=== PATIENT | female | born 2000 | race American Indian/Alaskan Native ===

== ENCOUNTER 2022-01-12 12:35 | Outpatient (CLI) | payer BC, OTHER ==
[2022-01-12 13:35] VITALS: BP 122/80
--- NOTE | 2022-01-12 15:14 | Vascular Lab Report ---
DUPLEX DOPPLER LOWER EXTREMITY VEINS, BILATERAL INDICATION / CLINICAL INFORMATION: Asymmetric lower extremity edema, greater on the right. 37 weeks p regnant. TECHNIQUE: Duplex doppler imaging was performed through the veins of both lower extremities using bettie ous compression and other maneuvers. COMPARISON: None available. FINDINGS: RIGHT COMMON FEMORAL VEIN: Negative. RIGHT FEMORAL VEIN: Negative. RIGHT POPLITEAL VEIN: Negative. RIGHT CALF VEINS: Negative. LEFT COMMON FEMORAL VEIN: Negative. LEFT FEMORAL VEIN: Negative. LEFT POPLITEAL VEIN: Negative. LEFT CALF VEINS: Negative. ADDITIONAL FINDINGS: No abnormal mass or fluid collection is seen. IMPRESSION: No sonographic evidence for DVT in either lower extremity. Signer Name: Fady Nuñez MD Signed: 01/12/2022 3:10 PM Workstation Name: [employer]
== END 2022-01-12 15:50 | disposition home or self-care (01) ==
LOC: TRG 12:35 → APU 12:37 → TRG 15:48
PROVIDERS: ATTEND Student in an Organized Health Care Education/Training Program
DX: O12.03 Gestational edema, third trimester (principal); Z3A.37 37 weeks gestation of pregnancy
CPT/HCPCS: 59025; 93970; 96360

== ENCOUNTER 2022-01-30 11:40 | Inpatient (IN) | payer BC, OTHER ==
[2022-01-30] MEDS ORDERED: TERBUTALINE 1 MG/1 ML INJ SUB-Q PRN (12:17)
[2022-01-30] MEDS ORDERED: miSOPROStol 200 MCG TAB PR PRN (12:17)
[2022-01-30] MEDS ORDERED: OXYTOCIN 10 UNIT/1 ML INJ IM PRN (12:17)
[2022-01-30] MEDS ORDERED: CARBOPROST TROMETHAMINE 250 MCG/1 ML INJ IM PRN (12:17)
[2022-01-30] MEDS ORDERED: ACETAMINOPHEN 325 MG TAB PO PRN (12:17)
[2022-01-30] MEDS ORDERED: fentaNYL 100 MCG/2 ML INJ IV PRN (12:17)
[2022-01-30] MEDS ORDERED: METHYLERGONOVINE MALEATE 0.2 MG/ML VIAL IM PRN (12:17)
[2022-01-30] MEDS ORDERED: ONDANSETRON 4 MG/2 ML INJ IV PRN ×2 (12:17→14:34)
[2022-01-30] MEDS ORDERED: MINERAL OIL 30 ML ORAL LIQD PO PRN (12:17)
[2022-01-30] MEDS ORDERED: LOPERAMIDE 2 MG CAP PO PRN (12:17)
[2022-01-30] MEDS ORDERED: LIDOCAINE (2%) 20 MG/1 ML VIAL 20 ML MDV INFILTRATI ONE (12:17)
[2022-01-30] MEDS ORDERED: NalbUPHINE 10 MG/1 ML INJ IV PRN (12:17)
[2022-01-30] MEDS ORDERED: ePHEDrine SULFATE 50 MG/1 ML INJ IV PRN ×2 (12:17→13:19)
--- NOTE | 2022-01-30 12:27 | History and Physical Report ---
History of Present Illness Date of examination: 01/30/22 Chief complaint: Labor contractions History of present illness: EDC Confirmation: 01/29/2022 Gestational Age: 35 weeks Past History : 1 Term Births: 0 Premature Births: 0 Living Children: 0 Para: 0 Mult. Births: 0 Prev : 0 Aborta: 0 Elect. Ab: 0 Spont. Ab: 0 Ectopics: 0 Past Medical History: Reviewed and updated today: Negative Past Medical History Past Surgical History: Reviewed and updated today: Negative Past Surgical History Family History Summary: Other Family Member - Has No Family History of Ovarvian Cancer - Entered On: 12/25/2021 Other Family Member - Has No Family History of Colon Cancer - Entered On: 12/25/2021 Other Family Member - Has Family History Breast Cancer - Entered On: 12/25/2021 Social History: Marital Status: Single Children: 0 Occupation: Risk Factors: Smoked Tobacco Use: Never smoker Smokeless Tobacco Use: Never Counseled to Quit/Cut Down: yes Passive Smoke Exposure: no HIV High Risk Behavior: low risk Caffeine Use: 0 drinks per day Exercise: yes Times/wk: 4 Type of Exercise: walk Alcohol Use: no Drug Use: yes Drug of Choice: marijuana Past Medical History 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 Past Surgical History Abnormal PAP: negative Uterine Anomaly: negative Social Hx: Marital Status: Single Children: 0 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 History Hx of STD: none HIV Risk Eval: low risk Hepatitis B Risk Eval: low risk Active Medications (reviewed today): PNV Current Allergies: ASPIRIN (ASPIRIN) (Moderate) Past History Past Medical History: other (see HPI) Past Surgical History: other (see HPI) 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) Family/Genetic History: other (see HPI) Social history: no significant social history - Obstetrical History Expected Date of Delivery: 01/29/22 Actual Gestation: 40 Week(s) 1 Day(s) : 1 Para: 0 Hx # Term Pregnancies: 0 Number of Pregnancies: 0 Spontaneous Abortions: 0 Induced : 0 Number of Living Children: 0 Medications and Allergies Allergies Allergy/AdvReac Type Severity Reaction Status Date / Time aspirin Allergy Mild Hives Verified 01/30/22 12:10 Home Medications Medication Instructions Recorded Confirmed Last Taken Type Vit No.179/Iron/Folic 1 each PO DAILY 01/30/22 01/30/22 01/29/22 History [ Tablet] Active Meds: Active Medications Acetaminophen (Acetaminophen 325 Mg Tab) 650 mg PO Q4H PRN PRN Reason: Pain, Mild (1-3) Carboprost Tromethamine (Carboprost Tromethamine 250 Mcg/1 Ml Inj) 250 mcg IM ONCE PRN PRN Reason: Uterine Bleeding Ephedrine Sulfate (Ephedrine Sulfate 50 Mg/1 Ml Inj) 10 mg IV Q2M PRN PRN Reason: Hypotension Fentanyl (Fentanyl 100 Mcg/2 Ml Inj) 100 mcg IV Q2H PRN PRN Reason: Pain,Severe (7-10) LABOR PAIN Oxytocin/Sodium Chloride (Pitocin/Ns 30 Unit/500ml) 30 units in 500 mls @ 2 mls/hr IV TITR CARMEN; Protocol Lactated Ringer's (Lactated Ringers) 1,000 mls @ 125 mls/hr IV DIRECT CARMEN Oxytocin/Sodium Chloride (Pitocin/Ns 30 Unit/500ml) 30 units in 500 mls @ 40 mls/hr IV TITR CARMEN; Protocol Lidocaine (Lidocaine (2%) 20 Mg/1 Ml Vial 20 Ml Mdv) 20 ml INFILTRATI ONCE ONE Stop: 01/30/22 12:18 Loperamide HCl (Loperamide 2 Mg Cap) 2 mg PO ONCE PRN PRN Reason: give with Hemabate Methylergonovine Maleate (Methylergonovine Maleate 0.2 Mg/Ml Vial) 0.2 mg IM ONCE PRN PRN Reason: Uterine Bleeding Mineral Oil (Mineral Oil 30 Ml Oral Liqd) 30 ml PO QHS PRN PRN Reason: Constipation Misoprostol (Misoprostol 200 Mcg Tab) 800 mcg MO ONCE PRN PRN Reason: Uterine Bleeding Nalbuphine HCl (Nalbuphine 10 Mg/1 Ml Inj) 10 mg IV Q2H PRN PRN Reason: Pain, Moderate (4-6) Ondansetron HCl (Ondansetron 4 Mg/2 Ml Inj) 4 mg IV Q8H PRN PRN Reason: Nausea And Vomiting Oxytocin (Oxytocin 10 Unit/1 Ml Inj) 10 unit IM ONCE PRN PRN Reason: Uterine Bleeding Terbutaline Sulfate (Terbutaline 1 Mg/1 Ml Inj) 0.25 mg SUB-Q ONCE PRN PRN Reason: Hyperstimulation/Hypertonicity Review of Systems All systems: negative - Vital Signs Vital signs: Vital Signs Pulse Pulse Ox 111 H 100 01/30/22 12:00 01/30/22 12:00 Temp Pulse Resp BP Pulse Ox 118 H 24 144/72 99 01/30/22 12:10 01/30/22 12:03 01/30/22 12:03 01/30/22 12:10 - Physical Exam Breasts: Positive: normal Cardiovascular: Regular rate Lungs: Positive: Normal air movement Abdomen: Positive: normal appearance, soft Genitourinary (Female): Positive: normal external genitalia, normal perenium - Obstetrical FHR: category 1 Uterine Contraction Monitor Mode: External Cervical Dilatation: 7 (Per triage nurse, anterior cx) Cervical Effacement Percentage: 100 Uterine Contraction Pattern: Regular Uterine Tone Measurement Phase: Contraction Results All other labs normal. OB Labs Blood Type: O (09/12/2021) Rh Type: positive (09/12/2021) Rh Antibody Screen: negative (09/12/2021) Hgb: 10.6 (09/12/2021) Hct: 32.7 (09/12/2021) Platelets: 306 (09/12/2021) Rubella: immune (09/12/2021) RPR: nonreactive (09/12/2021) Hep B Surface Antigen: negative (09/12/2021) HIV: negative (09/12/2021) Urine Culture: Negative (09/12/2021) First/Ultra Screen Interpretation: Panoroma/Susy Negative (09/12/2021) 1 Hour GTT: 142 (10/31/2021) 3 Hour GTT - fastin (11/06/2021) - 1 hour: 142 (11/06/2021) - 2 hour: 140 (11/06/2021) - 3 Hour: 138 (11/06/2021) Optional Labs Sickle Cell: negative (09/12/2021) Infant's Physician: mine Assessment and Plan 21y/o @ 40+1 weeks, admitted in active labor. Admission orders in EMR. uncomplicated, transfer to our office @ 35 weeks. GBS negative. records faxed to l&d. Anticipate - Patient Problems (1) 40 weeks gestation of Current Visit: Yes Status: Acute
[2022-01-30] MEDS ORDERED: LACTATED RINGERS 1,000 ML IV SCH (12:30)
[2022-01-30] MEDS ORDERED: fentaNYL-BUPIV 2 MCG/ML-0.125% 200 MCG/100 ML BAG EPIDURAL ONE (12:54)
[2022-01-30] MEDS ORDERED: SODIUM CHLORIDE P/F VIAL 10 ML 10 ML ONE (12:58)
[2022-01-30] MEDS ORDERED: BUPIVACAINE/PF (0.25%) 2.5 MG/ML 10 ML VIAL INFILTRATI ONE (12:59)
[2022-01-30] MEDS ORDERED: OXYTOCIN DRIP 30 UNITS/500 ML BAG IV SCH ×2 (13:00)
[2022-01-30 13:06] LABS: Hemoglobin 11.2 gm/dl (10.1-14.3); Mean Corpuscular HGB Conc 33 % (30-34); Mean Corpuscular Volume 88 fl (79-97); Platelet Count 378 K/mm3 (140-440); Red Blood Count 3.85 M/mm3 (3.65-5.03); Red Cell Distribution Width 17.1 % (13.2-15.2)
[2022-01-30] MEDS ORDERED: fentaNYL-BUPIV 2 MCG/ML-0.125% 200 MCG/100 ML BAG EPIDURAL SCH (13:19)
[2022-01-30] MEDS ORDERED: NALOXONE 0.4 MG/1 ML INJ IV PRN (13:19)
--- NOTE | 2022-01-30 13:23 | Anesthesia Consultation ---
Anesthesia Consult and Med Hx Date of service: 01/30/22 - Airway Anesthetic Teeth Evaluation: Good ROM Head & Neck: Adequate Mental/Hyoid Distance: Adequate Mallampati Class: Class II Intubation Access Assessment: Probably Good - Pulmonary Exam CTA: Yes - Cardiac Exam Cardiac Exam: RRR - Pre-Operative Health Status ASA Pre-Surgery Classification: ASA2 Proposed Anesthetic Plan: Epidural - Pulmonary Hx Smoking: No Hx Asthma: No Hx Respiratory Symptoms: No SOB: No COPD: No Home Oxygen Therapy: No Hx Pneumonia: No Hx Sleep Apnea: No - Cardiovascular System Hx Hypertension: No Hx Coronary Artery Disease: No Hx Heart Attack/AMI: No Hx Angina: No Hx Percutaneous Transluminal Coronary Angioplasty (PTCA): No Hx Cardia Arrhythmia: No Hx Pacemaker: No Hx Internal Defibrillator: No Hx Valvular Heart Disease: No Hx Heart Murmur: No Hx Peripheral Vascular Disease: No - Central Nervous System Hx Neuromuscular Disorder: No Hx Seizures: No CVA: No Hx Back Pain: No Hx Psychiatric Problems: No - Gastrointestinal Hx Ulcer: No Hx Gastroesophageal Reflux Disease: No - Endocrine Hx Renal Disease: No Hx End Stage Renal Disease: No Hx Cirrhosis: No Hx Liver Disease: No Hx Insulin Dependent Diabetes: No Hx Non-Insulin Dependent Diabetes: No Hx Thyroid Disease: No Hx Hypothyroidism: No Hx Hyperthyroidism: No - Hematic Hx Anemia: Yes Hx Sickle Cell Disease: No - Other Systems Hx Alcohol Use: No Hx Substance Use: No Hx Cancer: No Hx Obesity: No
--- NOTE | 2022-01-30 13:23 | Anesthesia Day of Surgery ---
Anesthesia Day of Surgery - Day of Surgery Patient Examined: Yes Patient H&P Reviewed: Yes Patient is NPO: Yes Beta Blockers: No Cardiac Clearance: No Pulmonary Clearance: No Schuyler's Test: N/A
--- NOTE | 2022-01-30 13:25 | Event Note ---
Date: 01/30/22 reevaluated pt s/p epidural, pt reports increased rectal pressure with some urge to bear down. SVE now 9.5/100/+2, IBOW noted. Anticipate , dr. Flynn updated.
[2022-01-30] MEDS ORDERED: MAGNESIUM HYDROXIDE (MOM) ORAL LIQD UDC PO PRN (14:34)
[2022-01-30] MEDS ORDERED: LANOLIN/ZINC/DIMETHICONE (LANSINOH) 7 GM TP PRN ×2 (14:34)
[2022-01-30] MEDS ORDERED: BENZOCAINE/MENTHOL 20/0.5% TOP SPRAY 56 GM TP PRN (14:34)
[2022-01-30] MEDS ORDERED: PROMETHAZINE 25 MG TAB PO PRN (14:34)
[2022-01-30] MEDS ORDERED: KETOROLAC 30 MG/1 ML INJ IV PRN (14:34)
[2022-01-30] MEDS ORDERED: diphenhydrAMINE 25 MG CAP PO PRN (14:34)
[2022-01-30] MEDS ORDERED: WITCH HAZEL/ GLYCERIN PAD TP PRN (14:34)
--- NOTE | 2022-01-30 14:34 | Procedure Note ---
OB Delivery Note - Delivery Date of Delivery: 01/30/22 Plating Foreman: KULWANT BARKLEY Estimated blood loss: 200cc - Vaginal Delivery presentation: vertex Delivery position: OA Intrapartum events: none Delivery induction: none Delivery monitor: external FHT, external uterine Route of delivery: Delivery placenta: spontaneous Delivery cord: 3 umbilical vessels Episiotomy: none Delivery laceration: 1st degree Delivery repair: vicryl Anesthesia: epidural Delivery comments: baby girl birthed over intact perineum, Direct OA, restituted to ARIC. pt stopped pushing and lost control after head delivered. Nursing staff assumed care of patient's legs, back to Jacqueline, HOB flat. Pt given instruction to push, anterior shoulder delivered without difficulty. Cord clamped and cut, cord blood collected. handed off to warmer for assessment. Placenta del intact and complete. 1st degree perineal lac repaired in the usual fashion. EBL 200ml. Apgars 8/9, wt 8#8oz. All counts correct, mother and infant LDR stable. - A at 1 minute: 8 at 5 minutes: 9 Gender: Female (8#8oz)
--- NOTE | 2022-01-30 14:36 | Progress Note ---
Labor Epidural - Labor Epidural Start Time: 12:58 Stop Time: 13:08 Performed by:: MARIELA ARRIAGA Procedure: Epidural Requested for Labor Pain. H&P and PT Chart reviewed and consent obtained. Time out performed and the procedure was explained, all questions answered. Patient was placed in a sitting position with monitors applied. The PTs back was prepped and draped in usual sterile fashion. The Skin was localized with 3 mL of 1% lidocaine at L3-L4. A 17-gauge Touhy epidural needle was advanced to ADIS with saline at 7 cm and no blood/CSF was noted via epidural needle. Epidural catheter was advanced to 12 cm. There was negative aspiration for blood and CSF in the catheter and negative response to a test dose of 3 ml 1.5% lidocaine w/ Epi and a sterile dressing was applied Patient tolerated the procedure well and there were no immediate complications noted.
[2022-01-30] MEDS: IBUPROFEN 800 MG TAB PO SCH ×2 (17:25→21:23)
[2022-01-30 17:29] LABS: Alanine Aminotransferase 11 units/L (7-56); Uric Acid 5.6 mg/dL (3.5-7.6)
[2022-01-30 18:40] LABS: Bilirubin,Urine Negative (Negative); Blood,Urine Negative (Negative); Color,Urine Yellow (Yellow); Protein,Urine <15 mg/dL mg/dL (Negative)
[2022-01-30] MEDS: DOCUSATE SODIUM 100 MG CAP PO SCH (22:30)
[2022-01-31 02:18] LABS: Hemoglobin 10.2 gm/dl (10.1-14.3)
[2022-01-31] MEDS: IBUPROFEN 800 MG TAB PO SCH ×3 (03:24→15:58)
[2022-01-31] MEDS ORDERED: TETANUS,DIPH,PERTUSS(ACELL) VACCINE 0.5 ML SYRINGE IM ONE (06:00)
--- NOTE | 2022-01-31 09:24 | Discharge Summary ---
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 Her BP's are now WNL at time of discharge. She denies CESAR, blurred vision, spots before her eyes, chest pain, shortness of breath, and upper abdominal pain. Hospital course: S: Pt doing well. Ambulating, voiding, and passing flatus. O: VSS. Adequate I&O's. H/H 10.2/30.0 Fundus firm, minimal bleeding noted. A: 21 y.o. s/p at term. In good condition . P: Discharge home with instructions. Pt to schedule visit in the office in 4-6 weeks. Condition at discharge: Good Disposition: 01 HOME / SELF CARE / HOMELESS Plan - Provider Discharge Summary Activity: routine, no sex for 6 weeks, no heavy lifting 4 weeks, no strenuous exercise Diet: routine Instructions: routine Additional instructions: [] Smoking cessation referral if applicable(refer to patient education folder for contact #) [] Refer to [facility]'s [facility] Booklet Call your doctor immediately for: * Fever > 100.5 * Heavy vaginal bleeding ( >1 pad per hour) * Severe persistent headache * Shortness of breath * Reddened, hot, painful area to leg or breast * Drainage or odor from incision. * Keep incision clean and dry at all times and follow doctor's instructions regarding bathing/showering - Follow up plan Follow up: FLAKITA CUELLAR MD [Primary Care Provider] - 7 Days (- Congratulations on the of your baby girl. - Thank you for allowing us to take care of you. - Please schedule your visit in the office in 4-6 weeks. - If you have any questions or concerns after discharge, please do not hesitate to call the office at [phone]. )
[2022-01-31] MEDS ORDERED: PRENATAL VIT27-FE FUMARATE-FOLIC ACID VIT TAB PO SCH (10:00)
[2022-01-31] MEDS: DOCUSATE SODIUM 100 MG CAP PO SCH (10:30)
--- NOTE | 2022-01-31 10:41 | Post Anesthesia Evaluation ---
- Post Anesthesia Evaluation Patient Participated: Yes Airway Patent: Yes Stable Respiratory Function: Yes Nausea/Vomiting: No Temp > 96.8F: Yes Pain Manageable: Yes Adequeate Hydration: Yes Anesthesia Complications: No Block Receding Appropriately: Yes Patient on Ventilator: No
[2022-01-31 17:10] VITALS: BP 116/65
== END 2022-01-31 16:48 | disposition home or self-care (01) | DRG 775 ==
LOC: TRG 11:40 → APU 11:41 → LD 12:17 → TRG 12:17 → LD 12:27 → OB 16:27
PROVIDERS: ADMIT Obstetrics & Gynecology; ATTEND Obstetrics & Gynecology
PROC: 10E0XZZ Delivery of Products of Conception, External Approach (ICD-10-PCS; principal; 2022-01-30)
PROC: 0HQ9XZZ Repair Perineum Skin, External Approach (ICD-10-PCS; 2022-01-30)
PROC: 3E0R3BZ Introduction of Anesthetic Agent into Spinal Canal, Percutaneous Approach (ICD-10-PCS; 2022-01-30)
PROC: 00HU33Z Insertion of Infusion Device into Spinal Canal, Percutaneous Approach (ICD-10-PCS; 2022-01-30)
PROC: 3E0234Z Introduction of Serum, Toxoid and Vaccine into Muscle, Percutaneous Approach (ICD-10-PCS; 2022-01-31)
DX: O70.0 First degree perineal laceration during delivery (principal); Z20.822 Contact with and (suspected) exposure to COVID-19; Z3A.40 40 weeks gestation of pregnancy; Z37.0 Single live birth; Z23 Encounter for immunization
CPT/HCPCS: 36415; 81001; 82565; 83615; 84450; 84460; 84550; 85014; 85018; 85027; 86592; 86850; 86900; 86901; 96360; 96361; G0378; J3490; U0003